=== PATIENT | male | born 1945 | race Caucasian/White ===

== ENCOUNTER → 2016-08-17 | Outpatient (CLI) | payer OTHER ==
[~2016-08-17] MED LIST: ACID CONTROLLER20 MG PO; ADULT LOW DOSE81 MG; ADULT LOW DOSE81 MG PO; ADVAIR 250-501 EACH; ADVAIR 250-501 EACH INH; ALBUTEROL INHAL17 GM; ALBUTEROL2.5 MG/31 INH; AMLODIPINE BESYL5 MG PO; ATORVASTATIN CA40 MG PO; AUGMENTIN 875875 M1 PO; AVELOX 400 MG400 M1 PO; BENZONATATE100 MG PO; CARVEDILOL12.5 MG PO; COLACE100 MG PO; CORDARONE200 MG PO; COUMADIN 2 MG TA2 M1 PO; COUMADIN 2.5MG2.5 M1 PO; COUMADIN 5 MG TA5 M1; COUMADIN 5 MG TA5 M1 PO; DEMADEX20 MG PO; Docusate Sodium PO; ENOXAPARIN100 MG/1 M SUBQ; ENOXAPARIN80 MG/0.1 SUBQ; FAMOTIDINE20 MG PO; FERROUS SULFAT325 MG PO; FIBER0.52 G1 PO; FISH OIL 1,0001 EAC5 PO; FISH OIL 1,001000 M1 PO; FUROSEMIDE 40 M40 M1; FUROSEMIDE 40 M40 M1 PO; GLUCOPHAGE500 MG; GLUCOPHAGE500 MG PO; GLUCOTROL5 MG; GLUCOTROL5 MG PO; GUAIFENESIN600 MG PO; HYDRALAZINE 10M10 MG PO; HYDRALAZINE 2525 MG PO; ISOSORBIDE DINI20 M2 PO; KEFLEX250 MG PO; LASIX 20 MG TAB20 MG PO; LASIX 40 MG TAB40 M1 PO; LEVAQUIN 250 M250 MG PO; LEVAQUIN 500 M500 M2 PO; LEVOTHYROXIN0.025 MG PO; LEVOTHYROXIN0.075 MG PO; LEVOTHYROXINE 0.1 MG PO; LISINOPRIL20 MG PO; LISINOPRIL40 MG; LISINOPRIL40 MG PO; LORAZEPAM 0.50.5 MG PO; LOVENOX SC; METFORMIN HCL500 M2 PO; METOPROLOL SUCC50 MG PO; MIRALAX17 GM PO; PREDNISOLONE 5 M5 M1 PO; PREDNISONE 10 M10 MG PO; PREDNISONE 20 M20 MG PO; PROAIR HFA8.5 GM IH; PROAIR HFA8.5 GM INH; PROAIR RESPICL90 MCG IH; PROVENTIL HFA6.7 G1 INH; SIMVASTATIN40 MG PO; SIMVASTATIN80 MG; SPIRIVA; SPIRIVA INH; TOPROL XL25 MG PO; TOPROL XL50 MG PO; TRADJENTA5 MG PO; TRIAMCINOLONE A80 G2 TOP; TYLENOL325 MG PO; VITAMIN B-12100 MC1 PO; VITAMIN B-12500 MCG PO; VITAMIN D1000 UNI1 PO; ZOCOR80 MG PO
[2016-08-17 09:15] VITALS: BP 138/62
[2016-08-17 10:40] VITALS: BP 120/61
== END ==
LOC: OPONC 08:02
DX: N18.3 Chronic kidney disease, stage 3 (moderate) (principal); D63.1 Anemia in chronic kidney disease
CPT/HCPCS: 95000

== ENCOUNTER → 2016-08-19 | Outpatient (CLI) | payer OTHER | LOC: OPONC 05:59 | DX: N18.3 Chronic kidney disease, stage 3 (moderate) (principal); D63.1 Anemia in chronic kidney disease | CPT/HCPCS: 95000 ==

== ENCOUNTER → 2016-08-22 | Outpatient (CLI) | payer OTHER ==
[2016-08-22 14:29] VITALS: BP 117/63
[2016-08-22 14:50] VITALS: BP 129/56
== END ==
LOC: OPONC 08:34
DX: N18.3 Chronic kidney disease, stage 3 (moderate) (principal); D63.1 Anemia in chronic kidney disease
CPT/HCPCS: 95000

== ENCOUNTER → 2016-08-31 | Outpatient (CLI) | payer OTHER ==
[2016-08-31 13:51] VITALS: BP 127/62
== END ==
LOC: OPONC 08-26 03:32
DX: N18.3 Chronic kidney disease, stage 3 (moderate) (principal); D63.1 Anemia in chronic kidney disease
CPT/HCPCS: 95000; 95113

== ENCOUNTER → 2016-09-09 | Outpatient (CLI) | payer OTHER | LOC: RAD 08:42 → CAT 09:10 | DX: R91.1 Solitary pulmonary nodule (principal); R91.8 Other nonspecific abnormal finding of lung field ==

== ENCOUNTER → 2017-10-19 | Outpatient (CLI) | payer OTHER | LOC: CAT 10-12 12:57 → EDSTATUS 10-12 13:02 → CAT 12:02 | DX: I51.7 Cardiomegaly (principal); R91.8 Other nonspecific abnormal finding of lung field; Z98.890 Other specified postprocedural states ==

== ENCOUNTER → 2019-02-21 | Outpatient (CLI) | payer OTHER ==
[~2019-02-21] VITALS: Ht 170.2 cm; Wt 82.6 kg
[~2019-02-21] MED LIST changes: +EYLEA2 MG/0.05 INTRAOCULR; +LIPITOR40 MG PO; +PACERONE 200 M200 M1 PO; +SYNTHROID125 MC1 PO; +VENTOLIN HFA 1818 GM INH
--- NOTE | ~2019-02-21 | P ---
[facility] [place] [address] [place] [address] PROCEDURE REPORT Name: EDITH COSTELLO Room #: REG [facility]#: [id number] Admission: 02/21/19 ������������������ Attend Phys: Abdulkadir Santos MD Discharge: ������������������ Date of : 43 Report #: [id number] THIS REPORT FOR: //name// CC: Abdulkadir Prater MD BRIEF HISTORY: The patient is a 74-year-old male with a history of right hemicolectomy for an adenomatous polyp with high-grade dysplasia and focal intramucosal adenocarcinoma. He presents for high risk screening. PREOPERATIVE DIAGNOSIS: High risk screening colonoscopy. POSTOPERATIVE DIAGNOSES: 1. Multiple colon polyps. 2. Sigmoid diverticulosis coli. 3. Small internal hemorrhoids. MEDICATIONS: Deep sedation with propofol per Anesthesia. SPECIMENS: 1. Diminutive distal transverse colon polyp. 2. Polyps x 2, hepatic flexure. 3. Polyps x 3, proximal transverse colon. 4. Polyp at 70. 5. Rectal polyp. ESTIMATED BLOOD LOSS: 3 mL. PROCEDURE: Colonoscopy to ileocolonic anastomosis and ileum with snare polypectomy and biopsy. FINDINGS: Prior to propofol sedation, procedure of colonoscopy discussed with the patient as well as potential risks and its complications. He indicates he understands and desires that we proceed. DESCRIPTION OF PROCEDURE: With the patient in left lateral decubitus position, digital examination was completed, which revealed no abnormalities. Subsequently, Olympus video colonoscope was introduced in the rectum, advanced under direct vision to the proximal colon. About the level of the hepatic flexure, there was an ileocolonic anastomosis, which was widely patent. The distal ileum was normal. At that point, the scope was slowly withdrawn and careful circumferential views were obtained. Upon slow withdrawal of the scope, the prep was good, the mucosa was within normal limits, normal vascular pattern, normal light reflex. Close to the anastomosis in the region of the hepatic flexure, 2 polyps were seen, one was a diminutive polyp, the other was a 2 x 4 mm linear polyp and both removed with biopsy forceps. The scope was further [address] [place] [address] PROCEDURE REPORT Name: EDITH COSTELLO Room #: REG [facility]#: [id number] Admission: 02/21/19 ������������������ Attend Phys: Abdulkadir Santos MD Discharge: ������������������ Date of : 43 Report #: [id number] withdrawn and at the hepatic flexure a total of 3 polyps were seen ranging from 3-5 mm, the 2 larger ones removed by cold snare polypectomy and the smaller one was removed with biopsy forceps. In the distal transverse colon a diminutive polyp was seen and removed with biopsy forceps. At 70 cm, a 5 mm sessile polyp was seen and removed by cold snare polypectomy and recovered. In the sigmoid colon, there was noted to be moderate sigmoid diverticulosis coli. There was no evidence of diverticulitis. In the rectum, a diminutive polyp was seen and removed with biopsy forceps. Upon retroflexion small hemorrhoids were seen. No other abnormalities were identified. The scope was withdrawn. The patient tolerated the procedure well. CONDITION OF THE PATIENT UPON DISCHARGE: Following the procedure the patient was drowsy, aroused, conversant and will be discharged home when fully ambulatory. INSTRUCTIONS TO THE PATIENT AND FAMILY AT THE TIME OF DISCHARGE: We will follow up on the pathology. However, in view of his history of colon cancer and multiple polyps today, we will have him return for high risk screening colonoscopy in 3 years. ��������������������������������������������� ���������������������������������������� By: ��������������������������������������������� 1217 1352 Abdulkadir Santos MD /nt
[2019-02-21 10:07] LABS: INR 1.2; PROTIME 12.7 Seconds (9.3-11.4)
--- NOTE | 2019-02-22 16:06 | PATH ---
[facility] [address] [address] PATHOLOGY RPT PROCEDURE Name: EDITH GARCIAS Room #: REG [facility].#: [id number] ������������������ Admission: 02/21/19 ������������������ Date of : 43 Discharge: Report #: [id number] Path Case #: [id number] [facility] Accession Number: [id number] . 01 Material submitted: . PART A: colon - BX POLYP AT DISTAL TRANSVERSE COLON. Modifiers: distal, transverse PART B: hepatic flexure - BX POLYP AT HEPATIC FLEXURE X2 PART C: colon - BX POLYP AT PROXIMAL TRANSVERSE COLON X3. Modifiers: proximal, transverse PART D: colon - POLYP AT 70CM PART E: rectum - BX POLYP AT RECTUM . 01 Clinical history: . Pre-OP DX: Hx polyps, colon cancer Post-OP DX: Colon polyps, diverticulosis, rectal polyp, small hemorrhoids . 02 Diagnosis: A. Polyp, distal transverse colon, endoscopic biopsy: - Tubular adenoma. - Negative for high-grade dysplasia. . B. Polyp x2, at hepatic flexure, endoscopic biopsy: - Tubular adenoma identified in multiple fragments. - Negative for high-grade dysplasia. . C. Polyp x3, at proximal transverse colon, endoscopic biopsy: - Tubular adenoma identified in multiple fragments. - Negative for high-grade dysplasia. . D. Polyp, at 70 cm, endoscopic biopsy: - Tubular adenoma. - Negative for high-grade dysplasia. . E. Polyp, at rectum, endoscopic biopsy: - Hyperplastic polyp. - Negative for dysplasia. . (IUV:research consultant; 02/22/2019) MBR/02/22/2019 . 02 Electronically signed: . Radha Chawla MD, Pathologist NPI- [id number] . 01 Gross description: . A. Received in formalin labeled "Edith Garcias BX polyp at distal [address] [address] PATHOLOGY RPT PROCEDURE Name: EDITH GARCIAS Room #: REG CLI [facility].#: [id number] ������������������ Admission: 02/21/19 ������������������ Date of : 43 Discharge: Report #: [id number] Path Case #: [id number] transverse colon," is a single segment of solis soft tissue measuring 0.4 cm in maximum dimension. The specimen is entirely submitted in cassette A1. . B. Received in formalin labeled "Edith Garcias BX polyp at hepatic flexure x2," are 6 segments of solis soft tissue measuring 1.7 x 1.3 x 0.3 cm in aggregate dimensions and ranging from 0.2 to 0.5 cm in maximum dimension. The specimen is submitted entirely in cassette B1. . C. Received in formalin labeled "Edith Garcias, BX polyp at proximal transverse colon x3," are 3 segments of solis soft tissue measuring 1.2 x 0.9 x 0.4 cm in aggregate dimensions and ranging from 0.4 to 0.6 cm in maximum dimension. The specimen is submitted entirely in cassette C1. . D. Received in formalin labeled "Edith Garcias, polyp at 70 cm," is a single segment of solis soft tissue measuring 0.6 cm in maximum dimension. The specimen is entirely submitted in cassette D1. . E. Received in formalin labeled "Edith Garcias, BX polyp rectum," are 2 segments of solis soft tissue measuring 0.7 x 0.2 x 0.1 cm in aggregate dimensions and ranging from 0.3 to 0.4 cm in maximum dimension. The specimen is submitted entirely in cassette E1. (TSD; 02/21/2019) TOB/TOB . 02 Pathologist provided ICD-10: D12.3, D12.6, K63.5, Z86.010 . 02 CPT . 501043, 294246, 748674, 581857, 492563 Specimen Comment: A courtesy copy of this report has been sent to Specimen Comment: [phone], . Specimen Comment: Report sent to / DR NAVARRO Performed at: [address], [place], [place] [id number] MD Faizan Sutton MD Phone: [phone] Performed at: [address] [id number] MD Radha Chawla MD Phone: [phone]
== END | disposition home or self-care (01) ==
LOC: GI 08:52
PROVIDERS: Specialist
DX: Z12.11 Encounter for screening for malignant neoplasm of colon (principal); Z85.038 Personal history of other malignant neoplasm of large intestine; Z86.010 Personal history of colon polyps; D12.3 Benign neoplasm of transverse colon; D12.4 Benign neoplasm of descending colon; K62.1 Rectal polyp; K57.30 Diverticulosis of large intestine without perforation or abscess without bleeding; K64.8 Other hemorrhoids; K21.9 Gastro-esophageal reflux disease without esophagitis; I13.0 Hypertensive heart and chronic kidney disease with heart failure and stage 1 through stage 4 chronic kidney disease, or unspecified chronic kidney disease; E11.22 Type 2 diabetes mellitus with diabetic chronic kidney disease; N18.3 Chronic kidney disease, stage 3 (moderate); I50.9 Heart failure, unspecified; J43.9 Emphysema, unspecified; I48.91 Unspecified atrial fibrillation; E78.5 Hyperlipidemia, unspecified; Z95.0 Presence of cardiac pacemaker; Z98.890 Other specified postprocedural states; Z85.828 Personal history of other malignant neoplasm of skin; Z98.0 Intestinal bypass and anastomosis status; Z98.42 Cataract extraction status, left eye; Z90.49 Acquired absence of other specified parts of digestive tract; Z95.1 Presence of aortocoronary bypass graft; Z98.41 Cataract extraction status, right eye; Z79.899 Other long term (current) drug therapy; Z87.891 Personal history of nicotine dependence; Z79.01 Long term (current) use of anticoagulants
CPT/HCPCS: 62110; 62900

== ENCOUNTER → 2019-11-27 | Outpatient (CLI) | payer OTHER | LOC: SJCVCIMAG 12:33 | DX: Z45.018 Encounter for adjustment and management of other part of cardiac pacemaker (principal); I08.8 Other rheumatic multiple valve diseases; I65.23 Occlusion and stenosis of bilateral carotid arteries; E78.00 Pure hypercholesterolemia, unspecified; I42.9 Cardiomyopathy, unspecified; I25.10 Atherosclerotic heart disease of native coronary artery without angina pectoris; I48.20 Chronic atrial fibrillation, unspecified; J44.9 Chronic obstructive pulmonary disease, unspecified; I13.10 Hypertensive heart and chronic kidney disease without heart failure, with stage 1 through stage 4 chronic kidney disease, or unspecified chronic kidney disease; E11.22 Type 2 diabetes mellitus with diabetic chronic kidney disease; N18.9 Chronic kidney disease, unspecified; Z79.899 Other long term (current) drug therapy; Z79.01 Long term (current) use of anticoagulants; Z82.49 Family history of ischemic heart disease and other diseases of the circulatory system ==

== ENCOUNTER → 2019-12-30 | Outpatient (CLI) | payer OTHER | LOC: RAD 12:20 | DX: J44.9 Chronic obstructive pulmonary disease, unspecified (principal); Z95.0 Presence of cardiac pacemaker ==

== ENCOUNTER 2020-02-16 18:46 | Inpatient (IN) | payer OTHER ==
[~2020-02-16] VITALS: Ht 170.2 cm; Wt 95.2 kg
[2020-02-16] VITALS (18 sets, daily range): BP systolic 99–168; BP diastolic 34–65
[2020-02-16 20:28] LABS: BE(vivo) -4.7 mmol/L (-2 to +3); HCO3 19.9 mmol/L (22.0-26.0); PCO2 34.6 mmHg (35.0-45.0); PO2 239.5 mmHg (80.0-100.0); pH 7.378 (7.360-7.450); sO2 99.5 % (92.0-98.0)
[2020-02-16 20:51] LABS: HEMATOCRIT 24.2 % (42.0-52.0); HEMOGLOBIN 7.7 gm/dL (14.0-18.0); MCHC 31.7 g/dL (28.0-37.0); MCV 91.5 fL (80.0-100.0); PLATELET COUNT 135 thou/uL (150-400); RBC 2.65 mil/uL (4.50-6.00); RDW 18.3 % (10.5-14.5); WBC 10.1 thou/uL (4.0-11.0)
[2020-02-16 21:04] LABS: CALCIUM 8.1 mg/dL (8.5-10.1); CREATININE 2.3 mg/dL (0.7-1.3)
[2020-02-16 21:06] LABS: APTT 34.5 Seconds (24.5-32.8); INR 2.7; PROTIME 27.7 Seconds (9.3-11.4)
[2020-02-16 21:14] LABS: FIBRINOGEN 362.1 mg/dL (210-360)
[2020-02-16 21:17] LABS: TOTAL BILIRUBIN 0.9 mg/dL (0.2-1.0); TOTAL PROTEIN 6.1 g/dL (6.4-8.2)
[2020-02-16 21:19] LABS: TROPONIN-I 1.02 ng/mL (<0.06)
[2020-02-16 21:38] LABS: ABSOLUTE NEUTROPHILS 9.4 thou/uL (1.4-8.2); NUCLEATED RBCS 1 /100WBC
[2020-02-16 21:39] LABS: ANISOCYTOSIS 1+; OVALOCYTES 1+
[2020-02-17] VITALS (82 sets, daily range): BP systolic 56–176; BP diastolic 29–89
[2020-02-17 01:08] LABS: HEMATOCRIT 24.8 % (42.0-52.0); HEMOGLOBIN 7.7 gm/dL (14.0-18.0); MCH 28.6 pg (26.0-34.0); MCHC 31.2 g/dL (28.0-37.0); MCV 91.8 fL (80.0-100.0); RBC 2.7 mil/uL (4.50-6.00); RDW 18.4 % (10.5-14.5); WBC 9.6 thou/uL (4.0-11.0)
[2020-02-17 01:24] LABS: CALCIUM 8.2 mg/dL (8.5-10.1); CREATININE 2.3 mg/dL (0.7-1.3)
[2020-02-17 01:27] LABS: POTASSIUM 4.9 mmol/L (3.5-5.1); TROPONIN-I 8.48 ng/mL (<0.06)
[2020-02-17] MEDS ORDERED: DOXYCYCLINE HYC50 MG PO ×2 (04:36→04:37)
[2020-02-17 07:05] LABS: ABSOLUTE NEUTROPHILS 5.6 thou/uL (1.4-8.2); BASOPHILS 0.3 % (0.0-2.0); HEMATOCRIT 24.6 % (42.0-52.0); HEMOGLOBIN 7.8 gm/dL (14.0-18.0); MCH 29.4 pg (26.0-34.0); MCHC 31.8 g/dL (28.0-37.0); MCV 92.4 fL (80.0-100.0); MONOCYTES 8.1 % (1.0-8.0); PLATELET COUNT 106 thou/uL (150-400); POLYS 85.6 % (36.0-66.0); RBC 2.66 mil/uL (4.50-6.00); WBC 6.6 thou/uL (4.0-11.0)
[2020-02-17 07:26] LABS: APTT 41.3 Seconds (24.5-32.8); PROTIME 25.8 Seconds (9.3-11.4)
[2020-02-17 07:34] LABS: CHOLESTEROL 102 mg/dL (<200); HDL CHOLESTEROL 32 mg/dL (>40); LDL CHOLESTEROL 15 mg/dL (<100); TC:HDL 3.2 Ratio (Not establshd); TRIGLYCERIDE 279 mg/dL (<150); VLDL 56 mg/dL (<40)
[2020-02-17 07:36] LABS: CALCIUM 8.2 mg/dL (8.5-10.1); CREATININE 2.2 mg/dL (0.7-1.3); MAGNESIUM 2.8 mg/dL (1.8-2.4); PHOSPHORUS 2.1 mg/dL (2.5-4.9); POTASSIUM 4.2 mmol/L (3.5-5.1)
[2020-02-17 07:38] LABS: TROPONIN-I 6.29 ng/mL (<0.06)
[2020-02-17 07:49] LABS: INR 2.5
[2020-02-17 08:45] LABS: ANISOCYTOSIS 1+
[2020-02-17 09:41] LABS: URINE BILIRUBIN NEGATIVE (Negative); URINE BLOOD 1+ (Negative); URINE CLARITY CLOUDY; URINE COLOR YELLOW; URINE GLUCOSE-RANDOM* 1+ (Negative); URINE KETONES NEGATIVE (Negative); URINE LEUKOCYTES-REFLEX TRACE (Negative); URINE NITRITE-REFLEX NEGATIVE (Negative); URINE PROTEIN (DIPSTICK) 2+ (Negative); URINE UROBILINOGEN 0.2 E.U./dl (0.2-1.0)
[2020-02-17 09:51] LABS: AMORPHOUS URATES Few /LPF (None Seen); BACTERIA-REFLEX 1-9 Few /HPF (None Seen); CASTS None Seen /LPF (None Seen); SQUAMOUS 4-10 Moderate /LPF (0-3); TRANSITIONAL EPITHEL CELL 0-3 Few /LPF (None Seen); URINE RBC 3-10 Few /HPF (0-2); URINE WBC-REFLEX 6-15 Few /HPF (0-5)
[2020-02-17 12:29] LABS: HEMOGLOBIN 6.9 gm/dL (14.0-18.0); MCHC 31.9 g/dL (28.0-37.0); WBC 4.9 thou/uL (4.0-11.0)
[2020-02-17 12:30] LABS: HEMATOCRIT 21.6 % (42.0-52.0); MCH 28.6 pg (26.0-34.0); MCV 89.9 fL (80.0-100.0)
[2020-02-17 12:47] LABS: PROTIME 30.3 Seconds (9.3-11.4)
[2020-02-17 12:48] LABS: APTT 42.5 Seconds (24.5-32.8); INR 2.9
[2020-02-17 12:51] LABS: CALCIUM 8.1 mg/dL (8.5-10.1); CREATININE 2.3 mg/dL (0.7-1.3); MAGNESIUM 2.6 mg/dL (1.8-2.4); PHOSPHORUS 1.9 mg/dL (2.5-4.9); POTASSIUM 3.9 mmol/L (3.5-5.1)
[2020-02-17 12:53] LABS: TROPONIN-I 4.47 ng/mL (<0.06)
[2020-02-17 13:20] LABS: ABSOLUTE NEUTROPHILS 3.9 thou/uL (1.4-8.2); ANISOCYTOSIS 1+
[2020-02-17 13:36] LABS: PLATELET COUNT 97 thou/uL (150-400)
[2020-02-17 18:07] LABS: ABSOLUTE NEUTROPHILS 2.5 thou/uL (1.4-8.2); RBC 2.32 mil/uL (4.50-6.00); WBC 3.2 thou/uL (4.0-11.0)
[2020-02-17 18:08] LABS: BASOPHILS 0.8 % (0.0-2.0); EOSINOPHILS 3.2 % (0.0-3.0); HEMATOCRIT 20.9 % (42.0-52.0); HEMOGLOBIN 6.6 gm/dL (14.0-18.0); LYMPHOCYTES 7.6 % (24.0-44.0); MCH 28.7 pg (26.0-34.0); MCHC 31.8 g/dL (28.0-37.0); MCV 90.1 fL (80.0-100.0); MONOCYTES 10.2 % (1.0-8.0); POLYS 78.2 % (36.0-66.0); RDW 18.4 % (10.5-14.5)
[2020-02-17 18:24] LABS: CALCIUM 7.8 mg/dL (8.5-10.1); CREATININE 2.2 mg/dL (0.7-1.3); MAGNESIUM 2.5 mg/dL (1.8-2.4); PHOSPHORUS 2.2 mg/dL (2.5-4.9); POTASSIUM 4.2 mmol/L (3.5-5.1)
[2020-02-17 18:29] LABS: TROPONIN-I 3.41 ng/mL (<0.06)
[2020-02-17 18:42] LABS: APTT 44.8 Seconds (24.5-32.8); INR 3.7; PLATELET COUNT 88 thou/uL (150-400); PROTIME 37.5 Seconds (9.3-11.4)
[2020-02-17 18:43] LABS: ANISOCYTOSIS 1+
[2020-02-18] VITALS (57 sets, daily range): BP systolic 44–169; BP diastolic 29–76
[2020-02-18 01:06] LABS: GLYCOHEMOGLOBIN (HGB A1C) 5.9 % (4.8-5.6)
[2020-02-18 05:56] LABS: ABSOLUTE NEUTROPHILS 2.6 thou/uL (1.4-8.2); BASOPHILS 0.9 % (0.0-2.0); EOSINOPHILS 4.5 % (0.0-3.0); HEMATOCRIT 24.7 % (42.0-52.0); LYMPHOCYTES 4.7 % (24.0-44.0); MCH 29.4 pg (26.0-34.0); MCHC 32.3 g/dL (28.0-37.0); MONOCYTES 9.5 % (1.0-8.0); PLATELET COUNT 87 thou/uL (150-400); POLYS 80.4 % (36.0-66.0); RBC 2.71 mil/uL (4.50-6.00); RDW 17.6 % (10.5-14.5); WBC 3.2 thou/uL (4.0-11.0)
[2020-02-18 06:11] LABS: APTT 49.1 Seconds (24.5-32.8); PROTIME 46.1 Seconds (9.3-11.4)
[2020-02-18 06:25] LABS: INR 4.5
[2020-02-18 06:51] LABS: ALBUMIN 2.3 g/dL (3.4-5.0); CALCIUM 7.6 mg/dL (8.5-10.1); CREATININE 2.3 mg/dL (0.7-1.3); MAGNESIUM 2.3 mg/dL (1.8-2.4); PHOSPHORUS 2.3 mg/dL (2.5-4.9); POTASSIUM 4.3 mmol/L (3.5-5.1)
[2020-02-18 06:59] LABS: TROPONIN-I 2.39 ng/mL (<0.06)
--- NOTE | 2020-02-18 10:47 | 2DMMODE ---
[facility] [place] [address] 2 D/M-MODE ECHOCARDIOGRAM Name: EDITH COSTELLO Room #: 243-P ADM IN M.R.#: [id number] Admission: 02/16/20 Attend Phys: Mariluz Aguilar MD Discharge: Date of : 43 Report #: [id number] THIS REPORT FOR: cc: Bennett Prater MD, Rene P. MD Lundgren,Manoj Coronado MD [facility] ~ APPROVED REPORT Study performed: 02/18/2020 09:33:30 EXAM: Comprehensive 2D, Doppler, and color-flow Echocardiogram Patient Location: ICU Room #: 243 Status: routine BSA: 2.02 HR: 61 bpm BP: 96/39 mmHg Rhythm: Irregular Other Information Study Quality: Adequate/patient on vent Technically limited study due to constant movement. Indications Status post cardiopulmonary arrest. Hx: CABG, AV replacement, Afib/PPM, CHF, COPD, HTN, HLP, DM. 2D Dimensions RVDd: 54.20 mm IVSd: 14.28 (7-11mm) LVDd: 54.30 mm PWd: 12.62 (7-11mm) Ascending Ao: 36.90 (22-36mm) LVDs: 43.94 (25-40mm) Aortic Root: 36.04 mm Volumes Left Atrial Volume (Systole) Single Plane 4CH: 70.75 mL Single Plane 2CH: 96.32 mL LA ESV Index: 44.00 mL/m2 Aortic Valve AoV Peak Ricardo.: 2.12 m/s AO Peak Gr.: 17.92 mmHg LVOT Max P.69 mmHg [facility] [address] [place] [address] 2 D/M-MODE ECHOCARDIOGRAM Name: EDITH COSTELLO Room #: 243-P [facility] IN .R.#: [id number] Admission: 02/16/20 Attend Phys: Josiane Zavala Discharge: Date of : 43 Report #: [id number] AO Mean Gr.: 9.47 mmHg AO V2 Mean: 1.47 m/s LVOT Max V: 0.65 m/s AO V2 VTI: 46.03 cm Mitral Valve E/A Ratio: 2.1 MV Decel. Time: 270.21 ms MV E Max Ricardo.: 1.11 m/s MV A Ricardo.: 0.52 m/s MV PHT: 78.36 ms IVRT: 62.28 ms Pulmonary Valve PV Peak Ricardo.: 0.66 m/s PV Peak Gr.: 1.76 mmHg Tricuspid Valve TR Peak Ricardo.: 3.16 m/s RAP Estimate: 10.00 mmHg TR Peak Gr.: 40.00 mmHg PA Pressure: 50.00 mmHg Left Ventricle The left ventricle is normal size. Mild concentric left ventricular hypertrophy. Left ventricular systolic function is moderately decreased. LVEF is 40%. Discordant septal motion, possibly from right ventricular pacing. Severe hypokinesis involving the base of the inferior wall. Severe diastolic dysfunction Right Ventricle The right ventricle is normal size. The right ventricular systolic function is normal. Pacemaker lead is present in the right ventricle. Atria Left atrium is moderately dilated. Right atrium is moderately dilated. Aortic Valve A #21 St[address] Andrez Mechanical aortic valve. (Peak pressure gradient 18mmHg; mean 9mmHg). Trace to mild aortic regurgitation. Mitral Valve Moderate mitral annular calcification. Mild mitral regurgitation. No evidence of mitral valve stenosis. Tricuspid Valve The tricuspid valve is normal in structure. Moderate tricuspid regurgitation. Estimated PAP is 50mmHg. [facility] [address] [place] [address] 2 D/M-MODE ECHOCARDIOGRAM Name: EDITH COSTELLO Room #: 243-P [facility] IN [facility].#: [id number] Admission: 02/16/20 Attend Phys: Josiane Zavala Discharge: Date of : 43 Report #: [id number] Pulmonic Valve The pulmonary valve is normal in structure. Trace pulmonic regurgitation. Great Vessels The aortic root is normal in size. The ascending aorta is normal in size. IVC is dilated and collapses <50% with inspiration. Pericardium There is no pericardial effusion. <Conclusion> Left ventricular systolic function is moderately decreased. LVEF is 40%. Discordant septal motion, possibly from right ventricular pacing. Severe hypokinesis involving the base of the inferior wall. Both atria are moderately dilated. A #21 St. Andrez Mechanical aortic valve. (Peak pressure gradient 18mmHg; mean 9mmHg); normal function. Trace to mild aortic regurgitation. Moderate mitral annular calcification. Mild mitral regurgitation. Moderate tricuspid regurgitation. Estimated pulmonary artery pressure of 50mmHg. There is no pericardial effusion. <ELECTRONICALLY SIGNED> By: Manoj Nance MD, [facility] 02/18/20 1046 1046 1046 Manoj Nance MD, [facility] /INF
[2020-02-19] VITALS (48 sets, daily range): BP systolic 90–134; BP diastolic 32–48
[2020-02-19 06:57] LABS: ALBUMIN 2.2 g/dL (3.4-5.0); CALCIUM 7.3 mg/dL (8.5-10.1); CREATININE 3.1 mg/dL (0.7-1.3); PHOSPHORUS 3.1 mg/dL (2.5-4.9); POTASSIUM 4.6 mmol/L (3.5-5.1)
[2020-02-19 07:55] LABS: HEMATOCRIT 23.9 % (42.0-52.0); HEMOGLOBIN 7.6 gm/dL (14.0-18.0); MCH 29.6 pg (26.0-34.0); MCHC 31.9 g/dL (28.0-37.0); MCV 92.8 fL (80.0-100.0); RBC 2.57 mil/uL (4.50-6.00); RDW 17.9 % (10.5-14.5); WBC 7.1 thou/uL (4.0-11.0)
[2020-02-19 09:29] LABS: INR 5.5; PROTIME 56.8 Seconds (9.3-11.4)
[2020-02-19 10:13] LABS: BE(vivo) -9.5 mmol/L (-2 to +3); HCO3 16.1 mmol/L (22.0-26.0); PCO2 33.4 mmHg (35.0-45.0); PO2 88.2 mmHg (80.0-100.0)
[2020-02-20] VITALS (22 sets, daily range): BP systolic 85–134; BP diastolic 29–43
[2020-02-20 05:02] LABS: HEMATOCRIT 23.4 % (42.0-52.0); HEMOGLOBIN 7.2 gm/dL (14.0-18.0); MCH 28.8 pg (26.0-34.0); MCHC 30.9 g/dL (28.0-37.0); MCV 93.2 fL (80.0-100.0); RBC 2.51 mil/uL (4.50-6.00); RDW 18.5 % (10.5-14.5); WBC 5.4 thou/uL (4.0-11.0)
[2020-02-20 05:25] LABS: CALCIUM 6.9 mg/dL (8.5-10.1); CREATININE 3.5 mg/dL (0.7-1.3); PHOSPHORUS 3.6 mg/dL (2.5-4.9); POTASSIUM 4.5 mmol/L (3.5-5.1); TOTAL BILIRUBIN 0.8 mg/dL (0.2-1.0)
--- NOTE | 2020-02-20 17:36 | HC ---
[facility] [place] [address] [place] [address] CONSULTATION Name: EDITH COSTELLO Room #: 243-P ADM IN M.R.#: [id number] Admission: 02/16/20 Attend Phys: Mariluz Aguilar MD Discharge: Date of : 43 Report #: [id number] THIS REPORT FOR: cc: Bennett Prater MD, Rene P. MD Khosla, Parveen K. MD ~ CC: Mariluz Prater DATE OF SERVICE: 02/17/2020 HISTORY OF PRESENT ILLNESS: This 75-year-old male patient was evaluated by me for hypoxic encephalopathy. This patient was transferred here after cardiopulmonary arrest. I called the patient's and talked to her and apparently he has a baseline COPD, which had become worst recently. He was very short of breath and was taking oxygen. Then, he had this cardiac arrest. REVIEW OF SYSTEMS: A 14-point review of system was carried out and it is extensive. He has coronary artery disease. He had a bypass surgery and has a history of hypertension, hyperlipidemia, hypothyroidism, diabetes, GERD, chronic renal failure, chronic anemia, obstructive sleep apnea. He was apneic and pulseless when it happened. The patient also had heat exposure as I understand. He has a history of congestive heart failure, renal insufficiency. He had a prior cataract surgery. He has a history of a pacemaker, has a cholecystectomy and he follows up with multiple consultants. He had colon resections in the past. Nurses tell me that he continued to have jerking activity in spite of heavy dosages of propofol. This was his relevant 14-point review of system. PAST MEDICAL HISTORY: Negative for seizure. FAMILY HISTORY: Unremarkable. SOCIAL HISTORY: Used to smoke until 2007, but does not do it after that. PHYSICAL EXAMINATION: The patient's examination was limited. He did not respond at all, but he is on propofol. He is having jerking movements. His pupil was not reactive and he had no reflexes. That examination is difficult to even confirm because a lot of examination will be affected by hypoxia. His blood pressure is 101/47, pulse is 49 and temperature is 93.2. He is on hypothermia protocol. He is intubated. Cardiac souza, he is stable. LABORATORY DATA: His last hemoglobin is 6.6. His chemistry indicates GFR of only 29. Family does not think he had a CT outside. He was jerking when I saw him. IMPRESSION: Hypoxic encephalopathy. The patient appeared to have a jerking [facility] [address] [place] [address] CONSULTATION Name: EDITH COSTELLO Room #: 243-P [facility] [place] [facility]#: [id number] Admission: 02/16/20 Attend Phys: Mariluz Aguilar MD Discharge: Date of : 43 Report #: [id number] movement, which may be part of the burst suppression pattern, we need to find out by doing an EEG. His prognosis clinically does not look very good, but we need to do further testing. In the meantime, I will start him on Keppra. After the EEG, he will need CT scan sometime when he stabilizes and does not have this jerking too much and depending upon this EEG. We will follow up this patient with you tomorrow. <ELECTRONICALLY SIGNED> By: Alcon Woods MD 02/20/20 1736 15 24 Alcon Woods MD /nt
--- NOTE | 2020-02-20 17:37 | EEG ---
[facility] [place] [address] ELECTROENCEPHALOGRAM Name: EDITH COSTELLO Room #: 243-P ADM IN M.R.#: [id number] Admission: 02/16/20 Attend Phys: Mariluz Aguilar MD Discharge: Date of : 43 Report #: [id number] THIS REPORT FOR: //name// CC: Mariluz Guajardo [facility] DATE OF SERVICE: 02/20/2020 This patient is being evaluated for hypoxic encephalopathy. Even with the paralyzing agent, the patient continued to have myoclonic activity that makes the interpretation of this EEG difficult. It appeared to be showing burst suppression pattern. IMPRESSION: The patient's EEG appeared to be showing burst suppression pattern, but cortical activity is present, but pretty significantly abnormal. <ELECTRONICALLY SIGNED> By: Alcon Woods MD 02/20/20 1737 1555 1615 Alcon Woods MD /nt
--- NOTE | 2020-02-20 17:37 | EEG ---
[facility] [place] [address] ELECTROENCEPHALOGRAM Name: EDITH COSTELLO Room #: 243-P ADM IN M.R.#: [id number] Admission: 02/16/20 Attend Phys: Mariluz Aguilar MD Discharge: Date of : 43 Report #: [id number] THIS REPORT FOR: //name// CC: [facility] DATE OF SERVICE: 02/18/2020 This patient is being evaluated for post-cardiac arrest. EEG has a lot of artifact. It is low amplitude. Background activity appeared to be about 6 Hz and 10 microvolt. Myoclonic activity was noticed. Photic stimulation is unremarkable. IMPRESSION: This patient has myoclonic activity. It also has a lot of muscle artifact. EEG may have to be repeated by giving him some paralytic agent. However, the EEG is very abnormal, but is nonspecific as it can occur with encephalopathy, effect of psychotropic medication, dementia, etc. Clinical correlation is recommended. <ELECTRONICALLY SIGNED> By: Alcon Woods MD 02/20/20 1737 1527 1530 Alcon Woods MD /nt
[2020-02-21] VITALS (61 sets, daily range): BP systolic 80–138; BP diastolic 13–75
[2020-02-21 05:51] LABS: HEMATOCRIT 24.3 % (42.0-52.0); HEMOGLOBIN 7.6 gm/dL (14.0-18.0); MCH 29.2 pg (26.0-34.0); MCHC 31.4 g/dL (28.0-37.0); RBC 2.61 mil/uL (4.50-6.00); RDW 18.5 % (10.5-14.5); WBC 6.6 thou/uL (4.0-11.0)
[2020-02-21 06:02] LABS: CALCIUM 7.1 mg/dL (8.5-10.1); CREATININE 3.8 mg/dL (0.7-1.3); POTASSIUM 4.7 mmol/L (3.5-5.1); TOTAL BILIRUBIN 0.6 mg/dL (0.2-1.0); TOTAL PROTEIN 5.2 g/dL (6.4-8.2)
--- NOTE | 2020-02-21 07:27 | HC ---
[facility] [place] [address] CONSULTATION Name: EDITH COSTELLO Room #: 243-P ADM IN M.R.#: [id number] Admission: 02/16/20 Attend Phys: Mariluz Aguilar MD Discharge: Date of : 43 Report #: [id number] THIS REPORT FOR: cc: Bennett Prater MD, Rene P. MD Al-Absi, Ahmed I. MD ~ CC: Mariluz Prater REASON FOR CONSULTATION: Elevated creatinine. REASON FOR PRESENTATION: Post-cardiac arrest. HISTORY OF PRESENT ILLNESS: This is obtained from the medical chart. The patient is a 75-year-old with prosthetic aortic valve, cardiomyopathy and an ejection fraction of around 40%, pacemaker, coronary artery disease, status post CABG, chronic kidney disease with a baseline creatinine of around 2.0. Apparently, the patient had cardiac arrest in another medical center and was life-flighted to our facility for further evaluation and treatment. He was at a quick trip place when he suddenly collapsed. He was found to be in pulseless electrical activity. He was coded. He went into yet another episode of PEA and another code lasted for about 15-20 minutes. The patient was found on initial laboratory values to have a potassium of 6.0, BUN of 41, creatinine of 2.3 mandating Nephrology consultation. He had made significant amount of urine in the last 24-hour. Currently, the patient is undergoing a code ice the procedure. I was asked to assist with the management of his acute kidney injury. PAST MEDICAL HISTORY: 1. Status post coronary artery bypass graft. 2. Pacemaker status. 3. Stage 3 chronic kidney disease with a baseline creatinine of around 2.0. 4. Colon resection. 5. Diabetes mellitus. 6. Chronic obstructive pulmonary disease. 7. Sleep apnea. REVIEW OF SYSTEMS: Unobtainable given the patient's current intubation status. ALLERGIES: None. MEDICATIONS: Listed in his chart. 1. Warfarin. 2. Tradjenta. 3. Atorvastatin. 4. Amiodarone. 5. Levothyroxine. [facility] [address] [place] [address] CONSULTATION Name: EDITH COSTELLO Room #: 243-P [facility] IN ..#: [id number] Admission: 02/16/20 Attend Phys: Mariluz Aguilar MD Discharge: Date of : 43 Report #: [id number] SOCIAL HISTORY: Unobtainable given the patient's current mental status. FAMILY HISTORY: Unobtainable given the patient's current mental status. PHYSICAL EXAMINATION: GENERAL: The patient is currently maintained on Levophed. VITAL SIGNS: Blood pressure is 146/58. HEAD AND NECK: No jugular venous distention. CHEST: Bilateral crackles. CARDIOVASCULAR: No rub detected. ABDOMEN: Soft. LOWER EXTREMITIES: There is no edema. LABORATORY VALUES: Reviewed. Sodium 138, potassium 4.2, BUN is 42, creatinine is 2.2. Troponin is up to 6.29. ASSESSMENT, IMPRESSION AND PLAN: 1. Chronic kidney disease at baseline. 2. Status post cardiac arrest. 3. Aortic valve prosthesis. 4. Coronary artery disease, post coronary artery bypass graft. 5. Respiratory failure. 6. The patient's creatinine seems to be at his baseline. 7. Continue with the current hemodynamic support. 8. Continue with the pressors. 9. No dialysis is indicated. Potassium was treated and had trended in the normal range. 10. Cardiology consultation. 11. Discussed future care plans with the family members. He is being ruled out for COVID-19. Overall poor prognosis given his 2 episodes of cardiac arrest. We will evaluate once rewarming is completed. <ELECTRONICALLY SIGNED> By: Xavier Lazaro MD 02/21/20 0727 0841 0901 Xavier Lazaro MD /nt
[2020-02-21 13:21] LABS: PROTIME 36.4 Seconds (9.3-11.4)
[2020-02-21 13:24] LABS: INR 3.5
[2020-02-22] VITALS (52 sets, daily range): BP systolic 60–117; BP diastolic 20–57
[2020-02-22 05:59] LABS: HEMATOCRIT 27.3 % (42.0-52.0); HEMOGLOBIN 8.1 gm/dL (14.0-18.0); MCH 28.6 pg (26.0-34.0); MCHC 29.7 g/dL (28.0-37.0); MCV 96.2 fL (80.0-100.0); RBC 2.84 mil/uL (4.50-6.00); WBC 7.5 thou/uL (4.0-11.0)
[2020-02-22 06:32] LABS: ALBUMIN 1.9 g/dL (3.4-5.0); CALCIUM 7.4 mg/dL (8.5-10.1); CREATININE 4.3 mg/dL (0.7-1.3); POTASSIUM 5.2 mmol/L (3.5-5.1); TOTAL BILIRUBIN 0.5 mg/dL (0.2-1.0); TOTAL PROTEIN 5.2 g/dL (6.4-8.2)
== END 2020-02-22 15:40 | DRG 207 ==
LOC: ICU 18:46
PROVIDERS: Hospitalist; Internal Medicine; Internal Medicine Pulmonary Disease; Nurse Practitioner; Nurse Practitioner Adult Health; Nurse Practitioner Family; Pediatrics; ADMIT Hospitalist; ATTEND Hospitalist
DX: J96.21 Acute and chronic respiratory failure with hypoxia (principal); G93.41 Metabolic encephalopathy; J18.9 Pneumonia, unspecified organism; G93.1 Anoxic brain damage, not elsewhere classified; I42.9 Cardiomyopathy, unspecified; N17.9 Acute kidney failure, unspecified; E87.2 Acidosis; I13.0 Hypertensive heart and chronic kidney disease with heart failure and stage 1 through stage 4 chronic kidney disease, or unspecified chronic kidney disease; I46.9 Cardiac arrest, cause unspecified; N18.3 Chronic kidney disease, stage 3 (moderate); E11.22 Type 2 diabetes mellitus with diabetic chronic kidney disease; I25.10 Atherosclerotic heart disease of native coronary artery without angina pectoris; E03.9 Hypothyroidism, unspecified; E78.5 Hyperlipidemia, unspecified; J43.9 Emphysema, unspecified; I35.1 Nonrheumatic aortic (valve) insufficiency; G47.33 Obstructive sleep apnea (adult) (pediatric); I48.0 Paroxysmal atrial fibrillation; D63.8 Anemia in other chronic diseases classified elsewhere; E87.5 Hyperkalemia; D69.6 Thrombocytopenia, unspecified; D72.819 Decreased white blood cell count, unspecified; G25.3 Myoclonus; Z20.828 Contact with and (suspected) exposure to other viral communicable diseases; Z66 Do not resuscitate; I65.29 Occlusion and stenosis of unspecified carotid artery; Z51.5 Encounter for palliative care; Z95.1 Presence of aortocoronary bypass graft; Z95.2 Presence of prosthetic heart valve; Z90.49 Acquired absence of other specified parts of digestive tract; Z95.0 Presence of cardiac pacemaker; Z98.42 Cataract extraction status, left eye; Z98.41 Cataract extraction status, right eye; Z87.891 Personal history of nicotine dependence; Z79.899 Other long term (current) drug therapy
CPT/HCPCS: 10078